=== PATIENT | female | born 1985 | race Caucasian/White ===

== ENCOUNTER 2020-12-10 11:06 | Outpatient (CLI) | payer OTHER, SELFPAY ==
[2020-12-10 12:51] LABS: SARS-CoV-2 RNA PCR Negative (Negative)
== END 2020-12-10 11:07 | disposition home or self-care (01) ==
LOC: CHSLAB 11:11
PROVIDERS: PCP Nurse Practitioner Family; Visit Provider Nurse Practitioner Family
DX: Z20.822 Contact with and (suspected) exposure to COVID-19 (principal)
CPT/HCPCS: C9803; U0003; U0005

== ENCOUNTER 2021-03-06 11:30 | Outpatient (CLI) | payer OTHER, SELFPAY ==
[2021-03-06 12:34] LABS: SARS-CoV-2 RNA PCR Negative (Negative)
== END 2021-03-06 11:31 | disposition home or self-care (01) ==
PROVIDERS: PCP Nurse Practitioner Family; Visit Provider Nurse Practitioner Family
DX: Z20.822 Contact with and (suspected) exposure to COVID-19 (principal)
CPT/HCPCS: C9803; U0003; U0005

== ENCOUNTER 2023-03-14 20:54 | Emergency (ER) | payer OTHER, SELFPAY ==
--- NOTE | ~2023-03-14 | XR_ITS ---
EXAM: XR ankle LT min 3V, XR tibia fibula LT 2V DATE: 03/14/2023 21:24 HISTORY: FALL/DEFORMITY . COMPARISON: None available. FINDINGS: Normal mineralization. Transverse mildly distracted fracture of the medial malleolus. Mild medial gutter widening. Oblique fracture of the distal fibula extending to the joint line (Miramontes typ e B), with mild lateral and posterior displacement. Posterior malleolar fracture, with anterior displ acement of a posterior fragment. No lytic or blastic lesion. Joint spaces are maintained. No erosion or periosteal change. Ankle joint effusion. Soft tissue swelling about the ankle within normal limits . IMPRESSION: Trimalleolar fracture of the left ankle. Reviewed, dictated and finalized at location K. ODICALS LIBRARY ASSISTANT IMPRESSION: Trimalleolar fracture of the left ankle.
[2023-03-14 20:54] VITALS: BP 100/55; PULSE 81; RESP 16; TEMP 36.5; O2SAT 100
--- NOTE | 2023-03-14 20:57 | ED.LOWEXIN ---
HPI - Extremity Injury (Lower) General Chief Complaint: Extremity Injury, Lower Stated Complaint: Left foot injury Time Seen by Provider: 03/14/23 20:57 Source: patient Mode of arrival: wheelchair Limitations: no limitations History of Present Illness HPI Narrative: 37-year-old female with no significant past medical history presents to the ER after she slipped and twisted left lower extremity 1 hour ago. She presents with -- pain and deformity of the left lower leg. MD complaint: leg injury Onset (ago): hour(s) ( 1 hour ago) Place: home Severity: severe Relieving factors: immobilization Exacerbating factors: movement Context: fall Other symptoms: none Treatments prior to arrival: cold therapy Related Data Home Medications Medication Instructions Recorded Confirmed No Home Medications 03/14/23 03/14/23 Allergies Allergy/AdvReac Type Severity Reaction Status Date / Time amoxicillin Allergy Intermediate Hives/Red Verified 01/14/23 12:55 Face Penicillins Allergy Mild Hives / Verified 01/14/23 12:55 Red Face Review of Systems Review of Systems: All systems reviewed & are unremarkable except as noted in HPI and below Constitutional: Constitutional: Reports as per HPI and Reports no additional constitutional complaints Eyes: Eyes: Reports as per HPI and Reports no additional eye complaints ENT: Reports system reviewed and no additional complaints, except as documented and Reports as per HPI Cardiovascular: Cardiovascular: Reports as per HPI and Reports no additional cardiovascular complaints Respiratory: Respiratory: Reports as per HPI and Reports no additional respiratory complaints Gastrointestinal: Gastrointestinal: Reports as per HPI and Reports no additional gastrointestinal complaints Genitourinary: Genitourinary: Reports no additional female genitourinary complaints and Reports as per HPI Musculoskeletal: Musculoskeletal: Reports no additional musculoskeletal complaints and Reports as per HPI Comments: left lower leg deformity. Integumentary/Breasts: Skin/Breast: Reports system reviewed and no additional complaints, except as docu and Reports as per HPI Comments: bruising of left lower leg Neurologic: Reports system reviewed and no additional complaints, except as documented and Reports as per HPI Psychiatric: Psychiatric: Reports no additional psychiatric complaints and Reports as per HPI Endocrine: Endocrine: Reports no additional endocrine complaints and Reports as per HPI Hematologic/Lymphatic: Hematologic/Lymphatic: Reports no additional hematologic/lymphatic complaints and Reports as per HPI Allergic/Immunologic: Allergic/Immunologic: Reports no additional allergic/immunologic complaints and Reports as per HPI PMFSH Past Medical History Medical History No active medical problems Surgical History Surgical History [place] teeth removed Family History Family History Father Family history of elevated blood lipids Mother Family history of elevated blood lipids Sibling Family history of elevated blood lipids Other Family history of hypothyroidism Social History Social History (Updated 01/14/23 @ 12:58 by Diane Evans CMA) Smoking status: Current every day smoker Tobacco type: cigarettes Alcohol intake: current Substance use: never Lack of Transportation: No Lack of Food: Never True Current Housing: I Have Housing Concerned About Future Housing: No Difficulty Paying Gas/Electric Bills: No Difficulty Paying for Meds: No Currently Unemployed: No Education: High School Diploma/GED Difficulty w/ Childcare or Family Care: No Exam Const: Orientation/consciousness: patient oriented x3 Limitations: no limitations HENMT: Head: normal to in
[2023-03-14] MEDS: KETOROLAC 30 MG/ML VIAL (*BKC) IM (21:10)
[2023-03-14] MEDS: ONDANSETRON HCL ODT 4 MG TABLET PO (21:10)
--- NOTE | 2023-03-14 22:10 | PC.NURSE ---
Discussing POC c pt and her spouse on recommendations for transfer to [place] for ortho care per Dr Santana. Pt wanting to see Dr Troncoso for her fx and surgery if possible. Dr Santana is branch operation evaluation manager for ortho group at this time and he has accepted for transfer.
[2023-03-14] MEDS: HYDROcodone/acetaminophen (*CRX) 5-325 MG TABLET 1 TAB PO (22:41)
[2023-03-14 22:48] VITALS: BP 109/56; PULSE 93; RESP 16; TEMP 37.3; O2SAT 99
--- NOTE | 2023-03-14 22:50 | PC.NURSE ---
Report called to Shadi Marcelino pt will be direct admit and pt spouse to take pt. Paperwork signed for transfer.
== END 2023-03-14 23:01 | disposition home or self-care (01) ==
PROVIDERS: Emergency Provider Internal Medicine Critical Care Medicine; PCP Nurse Practitioner Family
DX: S82.852A Displaced trimalleolar fracture of left lower leg, initial encounter for closed fracture (principal); F17.210 Nicotine dependence, cigarettes, uncomplicated; X50.0XXA Overexertion from strenuous movement or load, initial encounter; Y92.009 Unspecified place in unspecified non-institutional (private) residence as the place of occurrence of the external cause
CPT/HCPCS: 29515; 73590; 73610; 96372; 99284; A9270; J1885

== ENCOUNTER 2023-03-15 00:06 | Observation (INO) | payer OTHER, SELFPAY ==
[2023-03-15] VITALS (10 sets, daily range): BP systolic 99–116; BP diastolic 54–73; PULSE 77–110; RESP 12–17; TEMP 36.1–37.1; O2SAT 98–100; BMI 27.2
--- NOTE | ~2023-03-15 | XR_ITS ---
XR surgery orthopedic Indication: ORIF left ankle bimalleolar fracture TECHNIQUE: Fluoroscopy used during ORIF left ankle bimalleolar fracture performed by [Frederick cotto MD] on 03/15/2023. 1 minute 32 seconds of fluoroscopy with 3 fluoroscopic images captured. FINDINGS: Correlate with procedure note. IMPRESSION: Fluoroscopy used during ORIF left ankle bimalleolar fracture. Fracture fragments in near anatomic alignment post reduction. Reviewed, dictated and finalized at location A. OW MACHINE OPERATOR IMPRESSION: Fluoroscopy used during ORIF left ankle bimalleolar fracture. Fract ure fragments in near anatomic alignment post reduction.
--- NOTE | 2023-03-15 00:40 | ADMGEN ---
This patient, Sara Clinton, was admitted to [facility] Surg Room 310-01 at 0014. Patient/family oriented to hospital policies and general routines including ID bracelet, bed and alarms, visiting hours, pain management, procedures, bathroom and other care routines, personal items, smoking policy, room service/diet, and visiting hours. Information on how to activate the Rapid Response Team has been discussed. Patient/Family are encouraged to report perceived risks to care and to ask questions if they do not understand what they are told or what they should do.
[2023-03-15] MEDS: MORPHINE SULFATE (*CRX) 2 MG/ML INJ IV PUSH (04:31)
[2023-03-15] MEDS: HYDROcodone/acetaminophen (*CRX) 7.5-325 MG TABLET 1 TAB PO ×2 (05:44→14:35)
--- NOTE | 2023-03-15 07:46 | WPDANESEPPF ---
Anes - Initial Pre Proc Eval Procedure: Operation Date: 03/15/23 09:00 Proposed Procedures p ORIF Ankle Fracture(Left) - Frederick Santana MD Date/Time: 03/15/23 07:46 Surgeon: Frederick Santana MD Pre Op Diagnosis: Trimalleolar fracture left ankle Patient Data Age: 37 Gender: F Height: 1.63 m Weight: 72 kg Last Vital Signs Temp 36.1 C L 03/15/23 05:23 Pulse 78 03/15/23 05:23 Resp 14 03/15/23 05:23 BP 112/61 03/15/23 05:23 Pulse Ox 100 03/15/23 05:23 O2 Del Method Room Air 03/15/23 01:00 Allergies Allergy/AdvReac Type Severity Reaction Status Date / Time amoxicillin Allergy Intermediate Hives/Red Verified 01/14/23 12:55 Face Penicillins Allergy Mild Hives / Verified 01/14/23 12:55 Red Face Home Medications Medication Instructions Recorded Confirmed Type melatonin 5 mg tablet 5 mg PO HS PRN Sleep 03/15/23 03/15/23 History Laboratory Tests 03/15/23 05:48 Blood Type B Positive Antibody Screen Negative Patient hx anesthesia problems: none Family hx anesthesia problems: none Results Review: All pre-operative results and documents have been reviewed as part of the pre-operative evaluation. [facility] Past Medical History Medical History No active medical problems Surgical History Surgical History [place] teeth removed Family History Family History Father Family history of elevated blood lipids Mother Family history of elevated blood lipids Sibling Family history of elevated blood lipids Other Family history of hypothyroidism Social History Social History Smoking packs per day: 2 Smoking cigarettes per day: 40.0 Years smoked: 23 Smoking pack-years: 46.00 Smoking status: Former smoker Tobacco type: cigarettes Smoking end date: 02/27/23 Alcohol intake: current Substance use: never Lack of Transportation: No Lack of Food: Never True Current Housing: I Have Housing Concerned About Future Housing: No Difficulty Paying Gas/Electric Bills: No Difficulty Paying for Meds: No Currently Unemployed: No Education: High School Diploma/GED Difficulty w/ Childcare or Family Care: No Spiritual care concerns: No Anes - Eval Final PreProcedure Day of Procedure 03/15/23 07:46 Patient weight: overweight Heart: regular rate and rhythm Lungs: decreased breath sounds Airway: Mallampati scale class II Neurological: alert and oriented Last oral intake: >/= 8 hours ASA classification: II Emergent: no Anesthetic plan: proceed Anesthesia type and monitoring: general LMA and standard monitoring Results Review: All pre-operative results and documents have been reviewed as part of the pre-operative evaluation. Informed Consent: The patient's anesthetic plan and its attendant risks and benefits were discussed with the patient/family/POA. Questions were solicited and answers provided to the satisfaction of the patient/family/POA.
--- NOTE | 2023-03-15 07:46 | PM.IMHP ---
H&P: HPI History of Present Illness Date/Time: 03/15/23 07:46 Chief Complaint: Ankle fracture left. Narrative: Patient fell suffering a comminuted ankle fracture left ankle. She has a trimalleolar fracture. Review of Systems Musculoskeletal: Musculoskeletal: Reports arthralgias and Reports joint swelling PMFSH Past Medical History Medical History No active medical problems Surgical History Surgical History [place] teeth removed Family History Family History Father Family history of elevated blood lipids Mother Family history of elevated blood lipids Sibling Family history of elevated blood lipids Other Family history of hypothyroidism Social History Social History (Updated 01/14/23 @ 12:58 by Diane Evans CMA) Smoking packs per day: 2 Smoking cigarettes per day: 40.0 Years smoked: 23 Smoking pack-years: 46.00 Smoking status: Former smoker Tobacco type: cigarettes Smoking end date: 02/27/23 Alcohol intake: current Substance use: never Lack of Transportation: No Lack of Food: Never True Current Housing: I Have Housing Concerned About Future Housing: No Difficulty Paying Gas/Electric Bills: No Difficulty Paying for Meds: No Currently Unemployed: No Education: High School Diploma/GED Difficulty w/ Childcare or Family Care: No Spiritual care concerns: No Meds Home Medications and Allergies Home Medications Medication Instructions Recorded Confirmed Type melatonin 5 mg tablet 5 mg PO HS PRN Sleep 03/15/23 03/15/23 History Allergies Allergy/AdvReac Type Severity Reaction Status Date / Time amoxicillin Allergy Intermediate Hives/Red Verified 01/14/23 12:55 Face Penicillins Allergy Mild Hives / Verified 01/14/23 12:55 Red Face Vital Signs Vital Signs - 24 hr 03/15/23 00:15 03/15/23 05:23 03/15/23 01:00 Temperature 98.8 F 97 F L Pulse Rate 101 H 78 Respiratory Rate 16 14 Blood Pressure 116/73 112/61 Pulse Oximetry 98 100 Oxygen Delivery Room Air Exam Narrative: On exam she has pain and swelling left ankle she can wiggle her toes neurologically she is grossly intact. Radiology Reports: Comments: Launch?Imag Patient: Sara Clinton : 1985 MR#: [id number] Age: 37 Loc: [facility]? ? ADM Date: 03/14/23Attending Dr: Ordering Physician: Angel Pollock MD Date of Service: 03/14/23 Procedure(s): XR ankle LT min 3V; XR tibia fibula LT 2V Accession Number(s): [id number]; [id number] cc: Angel Pollock MD; Nyasia OrtizN~ EXAM:? XR ankle LT min 3V, XR tibia fibula LT 2V DATE: 03/14/2023 21:24 HISTORY: FALL/DEFORMITY . COMPARISON:? None available. FINDINGS:? Normal mineralization. Transverse mildly distracted fracture of the medial malleolus. Mild medial gutter widening. Oblique fracture of the distal fibula extending to the joint line (Miramontes type B), with mild lateral and posterior displacement. Posterior malleolar fracture, with anterior displacement of a posterior fragment. No lytic or blastic lesion. Joint spaces are maintained. No erosion or periosteal change. Ankle joint effusion. Soft tissue swelling about the ankle within normal limits. IMPRESSION: Trimalleolar fracture of the left ankle. Ankle X-Ray 03/14/23 Tibia/Fibula X-Ray 03/14/23 Assessment and Plan Assessment and plan (1) Trimalleolar fracture of left ankle: Code(s): S82.852A - Displaced trimalleolar fracture of left lower leg, initial encounter for closed fracture Status: Acute Assessment and Plan: Patient presents trimalleolar fracture left ankle. She has pain to palpation manipulation pain with activity. Neurologically she is grossly intact. X-rays demonstrates commin
--- NOTE | 2023-03-15 07:57 | WPDHPUPDATE1 ---
History and Physical Update Update Date/Time: 03/15/23 07:57 History and Physical has been reviewed, including an updated exam of the patient. There are NO changes in the patient's condition. Risks, benefits, and alternatives have been discussed and questions answered. Patient agrees to proceed with procedure.
[2023-03-15] MEDS: LACTATED RINGERS 1,000 ML 30 ML IV CONT ×2 (09:39→11:40)
[2023-03-15] MEDS: SCOPOLAMINE 1 MG PATCH 1 PATCH TRANSDERM (09:39)
[2023-03-15] MEDS: ceFAZolin SODIUM 1 GM VIAL 2 GM IV PUSH (10:09)
--- NOTE | 2023-03-15 10:51 | W.PM.PROC2 ---
Procedure Note - Detailed Date of Procedure 03/15/23 Pre-op Diagnosis Trimalleolar fracture left ankle Post-op Diagnosis Same Procedure Performed Open Reduction Internal fixation Left bimalleolar ankle fracture Surgeon Frederick Santana MD Anesthesia General Indications Fracture with displacement Description of Procedure Patient brought to operating room 7. A general anesthetic was administered. She was sterilely prepped and draped in usual manner. Longitudinal incision made laterally. Dissection carried down to the fracture. The fracture reduced and held with a 5 hole plate with an interfragmentary screw. This gave excellent alignment and fixation of the fracture. I then proceeded to the medial side a longitudinal incision was made. Dissection carried down the fracture identified secured with 2 4 x 4 millimeter screws 40 millimeters in length. X-rays in the mortise and lateral plane demonstrate good alignment of the fracture patient tolerated procedure well. Wound was then closed with 2-0 Vicryl and kamini sterile dressing and splint were applied. Implants Synthes small fragment and 4-0 cannulated screws Estimated Blood Loss 50 Complications No immediate complications Condition Stable [facility] Billing Surgery - Charge Forward: Surgery Billing (ORIF bimalleolar ankle FX med & lat)
--- NOTE | 2023-03-15 11:01 | PM.DS ---
DS: Admitting Diagnosis Discharge Date 03/15/23 Admitting Diagnosis Trimalleolar Ankle Fracture LEFT DS: Discharge Diagnosis Discharge Diagnosis Plan Patient underwent open reduction internal fixation left ankle. She did well. She can be dismissed at this time. She is to be nonweightbearing. Hydrocodone has been called in. DS: Summary Hospital Course Reason for hospitalization: Trimalleolar ankle fracture left. Hospital Course: Patient underwent surgery for trimalleolar ankle fracture left. Time spent discussing smoking cessation with patient: 3 to 10 minutes Status at Discharge Functional status at discharge: uses cane/walker Time Spent with Patient Time attestation: Total time spent providing and/or coordinating discharge services: Exam Narrative: Patient is in a splint but can wiggle toes. Neurologically she appears to be grossly intact. DS: Data Data Completed and Pending Labs on day of discharge: Labs from last 24 hours 03/15/23 05:48 Blood Type B Positive Antibody Screen Negative Discharge Plan Discharge Attending physician on discharge: Frederick Santana Discharging Clinician: Frederick Santana Anticipated Discharge Date/Time: 03/15/23 14:03 Patient Disposition: Home, Self-Care Activity: follow weight bearing status Diet: as tolerated Patient Instructions: Antibiotic Form Stand Alone Forms: General Discharge Information Follow-up/Referrals: Frederick Santana MD [Physician] - Discharge Medications: New hydrocodone-acetaminophen 7.5-325 mg tablet 1 tablet PO Q4H PRN (Reason: pain) Qty: 40 0RF Continued melatonin 5 mg Tablet 5 mg PO HS PRN (Reason: Sleep) Date of admission: 03/15/23 00:06 Primary Care Provider: Nyasia Ortiz Admitting Provider: Frederick Santana Attending physician on admission: Frederick Santana Condition: Improved
[2023-03-15] MEDS: fentaNYL CITRATE INJ (*CRX) 100 MCG/2 ML VIAL 25 MCG IV PUSH ×2 (11:39→12:35)
== END 2023-03-15 16:40 | disposition home or self-care (01) ==
PROVIDERS: Admitting Provider Orthopaedic Surgery; PCP Nurse Practitioner Family; Visit Provider Orthopaedic Surgery
PROC: (CPT 27814; principal; 2023-03-15 09:00)
DX: S82.852A Displaced trimalleolar fracture of left lower leg, initial encounter for closed fracture (principal); W19.XXXA Unspecified fall, initial encounter; Z87.891 Personal history of nicotine dependence; F10.90 Alcohol use, unspecified, uncomplicated; Z79.899 Other long term (current) drug therapy
CPT/HCPCS: 27814; 36415; 86850; 86900; 86901; 96361; 96374; 96375; 96376; 97161; 97165; 99199; A9270; C1713; C1769; G0378; J0690; J1100; J2270; J2405; J2704; J3010; J7120

== ENCOUNTER 2023-05-01 15:44 | Outpatient (RCR) | payer OTHER, SELFPAY ==
--- NOTE | 2023-05-01 16:57 | OPREHPOC ---
Outpatient Therapy Plan of Care This is a Multidisciplinary Plan of Care that may contain components documented by all disciplines (PT, OT, and ST.) PT Problem 1 PT Problem #1 Knowledge Deficit PT Goal 1 Goal patient to demonstrate independence with HEP Target Visit 5 PT Problem 2 PT Problem #2 Pain PT Goal 1 Goal Patient to report highest pain at 2/10 with walking Target Visit 10 PT Problem 3 PT Problem #3 Impaired Range of Motion PT Goal 1 Goal 1. patient to demonstrate 7 deg of L ankle DF AROM to improve gait and stair navigation 2. patient to demonstrate 40 deg of L ankle PF to improve gait mechanics Target Visit 10 PT Problem 4 PT Problem #4 Impaired Strength PT Goal 1 Goal Patient to demonstrate 4+/5 strength of the L ankle to return to prolonged ambulation for grocery shopping at PLOF Target Visit 10 PT Problem 5 PT Problem #5 Impaired Functional Mobil PT Goal 1 Goal 1. patient to score 50% improvement on LEFS 2. Patient to demonstrate heel strike at IC with no AD Target Visit 10
--- NOTE | 2023-05-01 16:58 | PTOPEVAL1 ---
Assessment and note entered by Jessi Lemus DPT Evaluation Information Assessment Status Evaluation Diagnosis L ankle pain Onset 03/15/23 Subjective Information Patient reports on 03/14/23 she slipped and broke her L ankle (tri malleolar) and had surgery on . She has been in a boot NWB until 04/29/23. She mostly was getting around with a knee scooter and today presents with a rollator and WB as tolerated. She tried using a STC but did not feel safe. 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 She has 1 flight of stairs at home that she is hopping up. She reports she enjoys walking outside and ride her bike for recreational activity. She reports she has limited ROM in the ankle and numbness on top of the foot. She returns to MD on 05/27/23. Reported Pain Level Pain Score 1: Self Report Assessment PT Clinical Summary Mrs. Clinton is a 37year old female who presents to PT with L ankle pain s/p fall and surgical intervention. Patient demonstrate decreased L ankle ROM, L ankle strength and impaired gait limiting her ability to navigate stairs, ambulate prolonged periods and sit for long periods of time . She would benefit from skilled PT to address impairments and return to OF. Plan of Care Interventions Electrical Stimulation,Gait Training,Hot Pack/Cold Pack,Manual Therapy,Neuro Re-education,Patient/ Caregiver Educati,Therapeutic Activities, Therapeutic Exercise PT Services Indicated Yes Treatment Frequency and 2x weekly for 10 visits Duration These treatments will address the objective and functional deficits as defined above. The patient will be advanced safely and appropriately in order for the patient to progress towards his/her prior level of function. Additional exercises will be introduced and as well as a comprehensive home exercise program upon discharge, if needed, ?to ensure carryover of functional gains achieved in the clinic. This treatment plan has been reviewed and agreement upon by the patient.
--- NOTE | 2023-06-05 16:25 | PTOPREEVAL ---
Assessment and note entered by JT File, PT Evaluation Information Assessment Status Re-evaluation Diagnosis L ankle pain Onset 03/15/23 Subjective Information patient reports she feels good today. she reports she has no pain in the L ankle. she reports she has not been able to try and run. she reports going down steps is also still difficult to go one step over the other. Reported Pain Level Pain Score 0: Self Report Assessment PT Clinical Summary mrs. vaca presents to skilled PT services for her 10th skilled PT visit. he has performed exercises/ activities in therapy focused on improving her rom , strength, stability, and gait mechanics. she presents today with improvements across all measurements, and achievement of all initial goals . she would benefit from continued skilled PT to achieve further increased strength of the L ankle, and normal gait mechanics and stair ambulation without antalgia. Plan of Care Interventions Electrical Stimulation,Gait Training,Hot Pack/Cold Pack,Manual Therapy,Neuro Re-education,Patient/ Caregiver Educati,Therapeutic Activities, Therapeutic Exercise PT Services Indicated Yes Treatment Frequency and 1x weekly for 2 more visits Duration These treatments will address the objective and functional deficits as defined above. The patient will be advanced safely and appropriately in order for the patient to progress towards his/her prior level of function. Additional exercises will be introduced and as well as a comprehensive home exercise program upon discharge, if needed, ?to ensure carryover of functional gains achieved in the clinic. This treatment plan has been reviewed and agreement upon by the patient.
--- NOTE | 2023-07-01 09:43 | PCPTNOTE ---
patient rescheduled for Thursday
--- NOTE | 2023-07-06 16:20 | OPREHPOC ---
Outpatient Therapy Plan of Care This is a Multidisciplinary Plan of Care that may contain components documented by all disciplines (PT, OT, and ST.) PT Problem 1 PT Problem #1 Knowledge Deficit PT Goal 1 Goal patient to demonstrate independence with HEP Target Visit 5 Progress Met PT Problem 2 PT Problem #2 Pain PT Goal 1 Goal Patient to report highest pain at 2/10 with walking Target Visit 10 Progress Met PT Problem 3 PT Problem #3 Impaired Range of Motion PT Goal 1 Goal 1. patient to demonstrate 7 deg of L ankle DF AROM to improve gait and stair navigation 2. patient to demonstrate 40 deg of L ankle PF to improve gait mechanics Target Visit 10 Progress Met PT Problem 4 PT Problem #4 Impaired Strength PT Goal 1 Goal Patient to demonstrate 4+/5 strength of the L ankle to return to prolonged ambulation for grocery shopping at PLOF Target Visit 10 Progress Met PT Goal 2 Goal patient to demonstrate 5/5 strength of the L ankle Target Visit 12 Progress Met PT Problem 5 PT Problem #5 Impaired Functional Mobil PT Goal 1 Goal 1. patient to score 50% improvement on LEFS. met 2. Patient to demonstrate heel strike at IC with no AD. met Target Visit 10 Progress Met PT Goal 2 Goal 1. patient to ambulate with normal gait mechanics with equal stance time/weight bearing and no hitch in toe off of the L LE, and not L toe out stance. 2. patient to ambulate up and down steps with reciprocal mechanics without L toe out stance. Target Visit 12 Progress Met
--- NOTE | 2023-07-06 16:20 | PTOPDC ---
Assessment and note entered by Jessi Nogueira DPT Evaluation Information Assessment Status Re-evaluation Diagnosis L ankle pain Onset 03/15/23 Subjective Information patient reports she only has pain when walking barefoot. she reports she has returned to all prior activities. she is independent with HEP Reported Pain Level Pain Score 0: Self Report Assessment PT Clinical Summary Mrs. Clinton attended 12 visits of skilled PT and met all goals. She has returned to ambulation without AD and equal WB and step length. She has returned to all work duties and house hold tasks at [employer]. She is independent with HEP and is appropriate for DC at this time. Plan of Care PT Services Indicated No
== END 2023-07-06 16:29 | disposition home or self-care (01) ==
LOC: CHSPT 15:44
PROVIDERS: Visit Provider Orthopaedic Surgery
DX: S82.852D Displaced trimalleolar fracture of left lower leg, subsequent encounter for closed fracture with routine healing (principal)
CPT/HCPCS: 97016; 97110; 97112; 97150; 97161

== ENCOUNTER 2023-09-02 08:12 | Outpatient (CLI) | payer OTHER, SELFPAY ==
[2023-09-02 09:02] LABS: Strep Group A RT-PCR NOT DETECTED (Negative)
== END 2023-09-02 08:13 | disposition home or self-care (01) ==
LOC: CHSLAB 08:14
PROVIDERS: PCP Nurse Practitioner Family; Visit Provider Family Medicine
DX: J02.9 Acute pharyngitis, unspecified (principal)
CPT/HCPCS: 87651

== ENCOUNTER 2023-12-21 15:13 | Outpatient (CLI) | payer OTHER, SELFPAY ==
[2023-12-21 16:37] LABS: Alanine Aminotransferase 19 U/L (14-59); Albumin Level 3.8 g/dL (3.4-5.0); Alkaline Phosphatase 83 U/L (46-116); Anion Gap 5 mmol/L (4-12); Aspartate Amino Transferase 12 U/L (15-37); Bilirubin,Total 0.3 mg/dL (0.00-1.00); Blood Urea Nitrogen 12 mg/dL (7-18); Calcium 9.1 mg/dL (8.5-10.1); Carbon Dioxide 36 mmol/L (21-32); Chloride 100 mmol/L (98-108); Cholesterol 234 mg/dL (0-200); Estimated Glomerular Filt Rate > 60; Free T4 Free Thyroxine 1.08 ng/dL (0.76-1.46); Glucose 94 mg/dL (70-99); HDL Direct 44 mg/dL (40-60); LDL Cholesterol Calculated 154 mg/dL (<130); Osmolality Calculated 291 mOsm/kg (285-295); Sodium 141 mmol/L (136-145); Thyroid Stimulating Hormone 1.36 uIU/mL (0.36-3.74); Triglycerides 178 mg/dL (0-150); Vitamin B12 400 pg/mL (193-986)
== END 2023-12-21 15:14 | disposition home or self-care (01) ==
PROVIDERS: PCP Nurse Practitioner Family; Visit Provider Nurse Practitioner Family
DX: R53.83 Other fatigue (principal); Z13.6 Encounter for screening for cardiovascular disorders; I10 Essential (primary) hypertension
CPT/HCPCS: 36415; 80053; 80061; 82607; 84439; 84443

== ENCOUNTER 2024-08-03 07:30 | Outpatient (CLI) | payer OTHER, SELFPAY ==
--- NOTE | ~2024-08-03 | MM_ITS ---
EXAMINATION: MM screening erick BI w deb HISTORY: Screening TECHNIQUE: Craniocaudal and mediolateral oblique 3-D tomosynthesis images were obtained and synthetic 2-D images were generated. CAD analysis was submitted and interpreted. COMPARISON: No prior mammogram is available for comparison at this institution. BREAST PARENCHYMAL COMPOSITION: Dense: The breasts are extremely dense, which lowers the sensitivity of mammography. FINDINGS: There is no mammographic evidence for malignancy in the right breast. There is focal asymme try in the upper central aspect of the left breast, posterior third. There are no suspicious calcific ations or architectural distortion. IMPRESSION: 1. Focal left breast asymmetry. 2. Additional mammographic views and possible breast ultrasound are recommended. BI-RADS Category 0: Incomplete: Needs additional imaging evaluation. Reviewed, dictated and finalized at location A. IMPRESSION: 1. Focal left breast asymmetry. 2. Additional mammographic views and possible breast ultrasound are recommended . BI-RADS Category 0: Incomplete: Needs additional imaging evaluation.
== END 2024-08-03 07:31 | disposition home or self-care (01) ==
LOC: CHSIMG 07:33
PROVIDERS: PCP Nurse Practitioner Family; Visit Provider Nurse Practitioner Obstetrics & Gynecology
DX: Z12.31 Encounter for screening mammogram for malignant neoplasm of breast (principal); R92.8 Other abnormal and inconclusive findings on diagnostic imaging of breast
CPT/HCPCS: 77063; 77067

== ENCOUNTER 2024-08-12 09:02 | Outpatient (CLI) | payer OTHER, SELFPAY ==
--- NOTE | ~2024-08-12 | MMUS_ITS ---
EXAMINATION: US breast LT complete, MM diagnostic erick LT w deb HISTORY: Follow-up left breast asymmetry TECHNIQUE: Additional 3-D tomosynthesis images of the left breast were performed and synthetic 2-D im ages were generated. CAD analysis was submitted and interpreted. High resolution complete left breast ultrasound was performed. COMPARISON: 08/03/2024 BREAST PARENCHYMAL COMPOSITION: Dense: The breasts are heterogeneously dense, which may obscure small masses FINDINGS: MAMMOGRAPHIC FINDINGS: There are no suspicious masses, calcifications or architectural distortion in the left breast to sugg est malignancy. ULTRASOUND: Complete US of all 4 quadrants of the left breast/s and retroareolar region was reviewed. Normal hete rogeneous echotexture without mass or fluid collection. No cysts. IMPRESSION: 1. No evidence for malignancy in the left breast. 2. Routine yearly screening mammogram and regular clinical breast examination are recommended. BI-RADS Category 1: Negative Reviewed, dictated and finalized at location A. IMPRESSION: 1. No evidence for malignancy in the left breast. 2. Routine yearly screening mammogram and regular clinical breast examination a re recommended. BI-RADS Category 1: Negative
== END 2024-08-12 09:03 | disposition home or self-care (01) ==
LOC: CHSIMG 09:02
PROVIDERS: PCP Nurse Practitioner Family; Visit Provider Nurse Practitioner Obstetrics & Gynecology
DX: R92.8 Other abnormal and inconclusive findings on diagnostic imaging of breast (principal)
CPT/HCPCS: 76641; 77061; 77065; G0279

== ENCOUNTER 2025-03-07 07:14 | Outpatient (CLI) | payer OTHER, SELFPAY ==
[2025-03-07 08:20] LABS: Alanine Aminotransferase 20 U/L (6-35); Albumin Level 4.6 g/dL (3.5-5.1); Alkaline Phosphatase 67 U/L (38-126); Anion Gap 9 mmol/L (4-12); Aspartate Amino Transferase 25 U/L (14-36); Bilirubin,Total 0.3 mg/dL (0.2-1.3); Blood Urea Nitrogen 11 mg/dL (7-17); Calcium 9.4 mg/dL (8.4-10.2); Carbon Dioxide 25 mmol/L (22-30); Chloride 107 mmol/L (98-107); Cholesterol 237 mg/dL (0-200); Estimated Glomerular Filt Rate > 60; Glucose 88 mg/dL (65-110); HDL Direct 56 mg/dL; Osmolality Calculated 290 mOsm/kg (285-295); Potassium 4.6 mmol/L (3.4-5.0); Sodium 141 mmol/L (137-145); Total Protein 7.9 g/dL (6.3-8.2); Triglycerides 152 mg/dL (<150)
[2025-03-07 08:37] LABS: Free T4 Free Thyroxine 1.05 ng/dL (0.78-2.19)
[2025-03-07 08:51] LABS: Thyroid Stimulating Hormone 2.280 uIU/mL (0.465-4.680)
[2025-03-08 10:10] LABS: Total Triiodothyronine (T3) 1.37 NG/ML (0.97-1.69)
== END 2025-03-07 07:15 | disposition home or self-care (01) ==
PROVIDERS: PCP Nurse Practitioner Family; Visit Provider Nurse Practitioner Family
DX: Z00.00 Encounter for general adult medical examination without abnormal findings (principal); Z13.6 Encounter for screening for cardiovascular disorders; R53.83 Other fatigue
CPT/HCPCS: 36415; 80053; 80061; 84439; 84443; 84480